=== PATIENT | female | born 1985 | race Caucasian/White ===

== ENCOUNTER 2016-09-17 09:26 | Inpatient (IN) | payer BC ==
[~2016-09-17] VITALS: Ht 167.6 cm; Wt 121.1 kg
[~2016-09-17 09:26] MED LIST: PRENCAP6 PO
--- NOTE | 2016-11-21 15:01 | MH ---
cc: [facility] DATE OF ADMISSION: 11/24/2016 HISTORY OF PRESENT ILLNESS: The patient is a 30-year-old female 4, para 3 estimated date of confinement is December 05, 2016. She was scheduled for an elective repeat section with tubal ligation for November 28. She presented with elevated blood pressures 140s/80s, trace proteinuria, mild edema, a 4-pound weight gain within the week. She was seen at labor and delivery on 11/20/2016 and discharged on bed rest. She returned today for evaluation. The patient's nonstress tests were reactive. She had no symptoms related to headache, blurred vision, nausea, vomiting or uterine contractions, vaginal bleeding. The baby is grossly active. The patient also has history of gestational diabetes that is diet-controlled. Sugars were normal. Recent ultrasound revealed a slight increase in amniotic fluid volume with an CESIA of 23. After reviewing the patient's findings, blood pressure normalized to 130/80. Decision was to proceed with moving her section sooner. The patient is stable clinically. ALLERGIES: THE PATIENT IS ALLERGIC TO: 1. CECLOR. 2. ROCEPHIN. 3. PENICILLIN. 4. AMOXICILLIN. 5. VALIUM. MEDICATIONS: The patient does not take any current medications except vitamins. PAST SURGICAL HISTORY: Her past surgical history includes: 1. section x3. 2. Cholecystectomy in the past. PAST MEDICAL HISTORY: She denies any systemic or chronic disease states aside from and gestational diabetes. FAMILY HISTORY: Noncontributory. SOCIAL HISTORY: She does not smoke, drink alcohol or use illicit substances. She is . PHYSICAL EXAMINATION: GENERAL: Patient is a well-appearing well-nourished female in no distress. VITAL SIGNS: Stable. Blood pressures 140/82 to 130/80. She is afebrile. heart tones are normal in the 140s. nonstress test is reactive. HEAD, EYES, EARS, NOSE, THROAT: The patient's HEENT shows no adenopathy or thyromegaly. Eyegrounds were normal. LUNGS: Lungs were clear in all [place]. CARDIAC: Cardiac is regular rate and rhythm. ABDOMEN: Abdomen is gravid, full-term uterus measuring 40 weeks. EXTREMITIES: Symmetrical full range of motion. She has 1+ edema. There is no hyperreflexia. NEUROLOGIC: Her neurologic exam is grossly intact and nonfocal. ASSESSMENT: The patient is at 38 weeks and 1 day and will be scheduled for elective repeat section on Thursday due to concerns for -induced hypertension and gestational thrombocytopenia. Her platelet count was 122. The patient's group B strep status is negative. She is also consented for tubal ligation. MD LORENA Dangelo/RIK /12:28 PM /2:44 PM
[2016-11-24] VITALS (18 sets, daily range): BP systolic 115–149; BP diastolic 59–91; PULSE 76–99; RESP 16–19; TEMP 97.8–98.4; O2SAT 96–98
[2016-11-24] MEDS ORDERED: CITRIC ACID-SODIUM CITRATE LIQ 30 ML UDC PO SCH (06:00)
[2016-11-24] MEDS ORDERED: LACTATED RINGER'S 1000 ML IV ONE (06:00)
[2016-11-24 06:24] LABS: AUTOMATED NEUTROPHIL # 6.7 TH/MM3 (1.8-7.7); BASOPHIL % 0.3 % (0.0-2.0); EOSINOPHIL # 0.1 TH/MM3 (0-0.4); EOSINOPHIL % 0.7 % (0.0-4.0); HEMATOCRIT 35.7 % (35.0-46.0); HEMO FLAGS DIFF FINAL; LYMPH % 25.1 % (9.0-44.0); LYMPHOCYTE # 2.6 TH/MM3 (1.0-4.8); MEAN CELL VOLUME 79.2 FL (80.0-100.0); MEAN CORPUSCULAR HEMOGLOBIN 26.3 PG (27.0-34.0); MEAN CORPUSCULAR HGB CONC 33.2 % (32.0-36.0); MONO % 9.6 % (0.0-8.0); NEUT % 64.3 % (16.0-70.0); PLATELET COUNT 121 TH/MM3 (150-450); RED BLOOD COUNT 4.51 MIL/MM3 (4.00-5.30); RED CELL DISTRIBUTION WIDTH 15.1 % (11.6-17.2); WHITE BLOOD COUNT 10.3 TH/MM3 (4.0-11.0)
[2016-11-24 06:31] LABS: BACTERIA, URINE MOD /hpf; BLOOD, URINE NEG (NEG); CALCIUM OXALATE CRYSTALS,URINE MANY /hpf; COMMENT (UR) CULTURE INDICATED; CULTURE IF INDICATED CULTURE INDICATED; GLUCOSE,URINE NEG (NEG); KETONE, URINE NEG (NEG); MUCUS URINE FEW /lpf (OCC); NITRITE,URINE NEG (NEG); SQUAMOUS EPITHELIAL CELL URINE 88 /hpf (0-5); TRANSITIONAL EPI CELLS, URINE <1 /hpf; URINE COLOR YELLOW (YELLW/STRAW)
[2016-11-24] MEDS ORDERED: OXYTOCIN 30 UNITS-500ML PREMIX 500 ML IV ONE (07:30)
[2016-11-24] MEDS: LACTATED RINGER'S 1000 ML IV SCH (07:30)
[2016-11-24] MEDS ORDERED: SIMETHICONE 80 MG CHEWABLE TAB PO PRN (07:30)
[2016-11-24] MEDS ORDERED: SODIUM CHLORIDE 0.9% FLUSH 10 ML FLUSH IV FLUSH PRN (07:30)
[2016-11-24] MEDS ORDERED: oxyCODONE/ACETAMINOPHEN 5 MG/325 MG TAB PO PRN ×2 (07:30)
[2016-11-24] MEDS ORDERED: KETOROLAC TROMETHAMINE 60 MG/2 ML (IM) VIAL IM PRN (07:30)
[2016-11-24] MEDS ORDERED: CLINDAMYCIN INJ 900 MG in SODIUM CHLORIDE 0.9% INJ 100 ML IV SCH (07:30)
[2016-11-24] MEDS ORDERED: ACETAMINOPHEN 325 MG TAB PO PRN (07:30)
[2016-11-24] MEDS ORDERED: OXYTOCIN 10 UNIT/ML AMP ONE (07:41)
[2016-11-24] MEDS ORDERED: ONDANSETRON HCL 4 MG/2 ML VIAL ONE ×2 (08:49→09:32)
[2016-11-24] MEDS ORDERED: MORPHINE SULFATE PF 5 MG/10 ML VIAL ONE (08:49)
--- NOTE | 2016-11-24 08:49 | PD.OB.DELI ---
Procedure Note Section Procedure Performed by Trey Barcenas Procedure: Repeat Low Transverse Sec Indication for delivery: Desired elective repeat Informed consent obtained: For anesthesia, For procedure Confirmed correct: Patient, Procedure, Site, Time-out taken Anesthesia: Spinal Medication prior to procedure: As documented in eMAR Monitoring during procedure: Blood pressure monitoring, compliance monitor, doppler, Pulse oximetry Urinary catheter: Inserted using sterile technique, To dependent drainage Sterile preparation: Duraprep Position: Supine with wedge to right side, Supine with safety belt applied Operative Features Skin Incision: Pfannenstiel Uterine Incision: Low transverse w/knife / scissors Membranes Ruptured: Artificially Presentation: Occiput anterior Delivery of : Uneventful Infant: Male One Minute : 9 Five Minute : 9 Weight: 10# 4oz Status of infant: Viable Placenta delivered: Intact Medications: Antibiotics, Oxytocin Estimated blood loss: 650 Procedure tolerated: Well Maternal Condition: Stable Condition: Stable Trey Barcenas MD Nov 24, 2016 08:49
[2016-11-24] MEDS ORDERED: CLINDAMYCIN INJ 600 MG in SODIUM CHLORIDE 0.9% INJ 100 ML IV SCH (09:00)
[2016-11-24] MEDS: SODIUM CHLORIDE 0.9% FLUSH 10 ML FLUSH IV FLUSH SCH (09:00)
[2016-11-24] MEDS ORDERED: *Lactated Ringer's INJ 1,000 ML IV ONE (09:12)
[2016-11-24] MEDS: ONDANSETRON HCL 4 MG/2 ML VIAL IV PUSH PRN ×2 (09:34→13:58)
[2016-11-24] MEDS ORDERED: OXYTOCIN 30 UNITS-500ML PREMIX 500 ML ONE (09:36)
[2016-11-24] MEDS ORDERED: EPIDURAL-DIPHENHYDRAMINE HCL 50 MG/ML VIAL IV PUSH PRN (11:15)
[2016-11-24] MEDS ORDERED: EPIDURAL-NALOXONE HCL 0.4 MG/ML AMP IV PRN (11:15)
[2016-11-24] MEDS ORDERED: EPIDURAL-DIPHENHYDRAMINE HCL 50 MG CAP PO PRN (11:15)
[2016-11-24] MEDS ORDERED: EPIDURAL-NO SYSTEMIC NARCOTICS PRN (11:15)
[2016-11-24] MEDS ORDERED: EPIDURAL-DO NOT ADMINISTER ANTICOAGULANTS PRN (11:15)
[2016-11-24] MEDS ORDERED: LACTATED RINGER'S 1000 ML INJ 1,000 ML IV SCH (12:30)
[2016-11-24] MEDS: CLINDAMYCIN INJ 600 MG in SODIUM CHLORIDE 0.9% INJ 100 ML IV SCH ×2 (14:48→21:28)
[2016-11-24] MEDS ORDERED: OXYTOCIN 30 UNITS-500ML PREMIX 500 ML IV PRN (17:30)
[2016-11-24] MEDS: DOCUSATE SODIUM 50 MG/SENNA 8.6 MG TAB PO PRN (22:14)
[2016-11-24] MEDS: IBUPROFEN 600 MG TAB PO PRN (22:14)
[2016-11-25] VITALS: BP 131/69; PULSE 99; RESP 20
--- NOTE | 2016-11-25 12:37 | HHI.OB ---
Subjective Post Operative Day: 1 Remarks Doing well has nayeli BP very good infant in NICU for TTN Objective Vitals/I&O Vital Signs Date Time Temp Pulse Resp B/P Pulse Ox O2 Delivery O2 Flow Rate FiO2 11/25/16 00:00 99 20 11/25/16 00:00 131/69 11/24/16 19:15 98.4 86 18 146/87 11/24/16 16:00 98.3 92 18 11/24/16 16:00 138/84 Result Diagram: 11/24/16 0609 Objective Remarks GENERAL: Well-nourished, well-developed patient. CARDIOVASCULAR: Regular rate and rhythm without murmurs, gallops, or rubs. RESPIRATORY: Breath sounds equal bilaterally. No accessory muscle use. ABDOMEN/GI: Abdomen soft, non-tender, bowel sounds present. Incision: Clean, dry and intact.nayeli Fundus: Firm, non-tender at umbilicus. GENITOURINARY: Light to moderate bleeding. EXTREMITIES: No cyanosis or edema, non-tender, without signs of DVT. Medications and IVs Current Medications Medications (Trade) Dose Ordered Sig/Froy Route Start Time Stop Time Status Last Admin (Lr 1000 ml Inj) 1,000 ml @ 150 mls/hr Q6H40M IV 11/24/16 06:00 11/24/16 07:30 (NS Flush) 2 ml BID IV FLUSH 11/24/16 09:00 (NS Flush) 2 ml UNSCH PRN IV FLUSH 11/24/16 07:30 11/24/16 21:29 (Mylicon Chew) 80 mg QID PRN PO 11/24/16 07:30 (Tylenol) 650 mg Q6H PRN PO 11/24/16 07:30 (Toradol Inj) 30 mg Q6H PRN IM 11/24/16 07:30 12/01/16 07:29 (Percocet 5-325 Mg) 1 tab Q4H PRN PO 11/24/16 07:30 (Percocet 5-325 Mg) 2 tab Q4H PRN PO 11/24/16 07:30 (Brook-Colace) 2 tab Q12H PRN PO 11/24/16 07:30 11/24/16 22:14 (M-M-R Ii Inj) 0.5 ml ONCE ONCE SQ 11/25/16 16:00 11/25/16 16:01 (Boostrix Inj) 0.5 ml ONCE ONCE IM 11/25/16 16:00 11/25/16 16:01 (Zofran Inj) 4 mg Q6H PRN IV PUSH 11/24/16 07:30 11/24/16 13:58 (Motrin) 600 mg Q6H PRN PO 11/24/16 22:00 11/24/16 22:14 Assessment/Plan Assessment and Plan doing well and normotensive anticipate POD 3 discharge with . Albertina Bishop MD Nov 25, 2016 12:37
[2016-11-25 13:31] LABS: AUTOMATED NEUTROPHIL # 8.7 TH/MM3 (1.8-7.7); BASOPHIL % 0.2 % (0.0-2.0); EOSINOPHIL # 0.1 TH/MM3 (0-0.4); EOSINOPHIL % 0.9 % (0.0-4.0); HEMATOCRIT 33.2 % (35.0-46.0); HEMO FLAGS DIFF FINAL; LYMPH % 11.5 % (9.0-44.0); LYMPHOCYTE # 1.3 TH/MM3 (1.0-4.8); MEAN CELL VOLUME 78.9 FL (80.0-100.0); MEAN CORPUSCULAR HEMOGLOBIN 26.4 PG (27.0-34.0); MEAN CORPUSCULAR HGB CONC 33.4 % (32.0-36.0); MONO % 8.6 % (0.0-8.0); NEUT % 78.8 % (16.0-70.0); PLATELET COUNT 127 TH/MM3 (150-450); RED BLOOD COUNT 4.21 MIL/MM3 (4.00-5.30)
[2016-11-25] MEDS: IBUPROFEN 600 MG TAB PO PRN (14:27)
[2016-11-25] MEDS: DOCUSATE SODIUM 50 MG/SENNA 8.6 MG TAB PO PRN (14:27)
[2016-11-25] MEDS ORDERED: DIPHTH/TETANUS/ACEL PERTUSSIS (BOOSTER) 0.5 ML VIAL/PFS IM ONE (16:00)
[2016-11-25] MEDS ORDERED: MEASLES, MUMPS, RUBELLA VACCINE 0.5 ML VIAL SQ ONE (16:00)
--- NOTE | 2016-11-25 17:38 | MP ---
cc: JAS DELEON M.D. DATE OF SURGERY: 11/24/2016 PREOPERATIVE DIAGNOSIS: Term anterior , previous section x2 for elective repeat section and tubal ligation. PROCEDURE Repeat low transverse section delivery of viable male infant, bilateral tubal ligation using modified Isi technique. ANESTHESIA Spinal ESTIMATED BLOOD LOSS 650 CC DRAINS: Zavaleta gravity OPERATIVE FINDINGS Male was delivered, left occiput transverse, baby weighed 10 pounds 4 ounces. 's were 9 at one minute, 9 at five minutes. INDICATIONS FOR PROCEDURE Patient with two previous sections for elective repeat at term and sterilization procedure. Consent was signed. The patient received clindamycin 90 mg IV prophylactically due to penicillin allergy. DESCRIPTION OF PROCEDURE The patient was taken up room in stable condition underwent spinal anesthetic with excellent result. She was prepped and draped and the Zavaleta catheter was inserted by sterile technique placed a dependent drainage sequential were placed on lower extremities for deep venous thrombosis prophylaxis. Time-out was conducted and agreed by all present in the room after the patient was assessed and excellent pain management was noted. The procedure initiated after she was prepped and draped. A Pfannenstiel incision previously was used #10 blade was used to make the incision through the skin down through the subcutaneous layer encountering significant scar due to previous surgeries the scar was excised sharply and allowing dissection of the rectus fascia away from the muscle. \ This allowed identification of the midline rectus and the incision was made vertically to gain entry to the peritoneum which was opened sharply. The incision was extended by sharp dissection the uterus was examined lower uterine segment was clear of any complication or scar. A transverse incision was made lower uterine segment, pushing the peritoneum away and allowing transverse incision into the uterine cavity clear fluid was noted. The incision was extended bluntly. The vertex was delivered without complication. The was delivered in total with good tone and cry. Baby urinated well on the operative field. Cord was doubly clamped and cut and the was taken isolette by the nursery staff present. Cord samples obtained for typing. The umbilical cord intact with placenta membranes was then removed through the uterine incision intact in sterile technique and the placenta was then sent for donation. The uterus was examined exteriorized. It was closed with a double layer first was a running locking suture followed by a second imbricating suture. All of 0 Monocryl. Fallopian tubes were identified, mesentery was identified, transilluminated and the tube was elevated with [place] the mesentery was opened with the Bovie and then a 2-0 plain sutures placed proximally and distally on each fallopian tube tying the tubes securely and then excising each fallopian tube sharply with scissors. The fallopian tubes were labeled appropriately right and left no active bleeding or hematoma was noted from either right or left fallopian tube remnant. The uterus was then returned to its normal anatomic position. The pelvis all free blood clot was removed. Full count was made and correct. Peritoneum was then closed with running suture two Monocryl. The muscle was reapproximated with interrupted suture of 2 Monocryl and the fascia was closed with 0 Vicryl in a simple running fashion with good result. Subcutaneous layer was irrigated. A small bleeders cauterized, dry subcutaneous space was reapproximated with a running suture of 2-0 Monocryl and nayeli used close the skin. Dressing was applied. The final count was correct. The patient was stable. Infant was doing well in the regular nursery. MD LORENA Dangelo/milton /9:36 AM /5:24 PM
[2016-11-25 19:33] VITALS: BP 111/71; PULSE 97; RESP 16; TEMP 98.2; O2SAT 98
[2016-11-25] MEDS: SODIUM CHLORIDE 0.9% FLUSH 10 ML FLUSH IV FLUSH SCH (21:00)
[2016-11-26 07:20] VITALS: BP 128/80; PULSE 100; RESP 18; TEMP 98.6
[2016-11-26] MEDS: LACTATED RINGER'S 1000 ML IV SCH ×2 (07:53→14:14)
[2016-11-26] MEDS: SODIUM CHLORIDE 0.9% FLUSH 10 ML FLUSH IV FLUSH SCH (07:53)
[2016-11-26] MEDS: IBUPROFEN 600 MG TAB PO PRN ×2 (08:16→15:26)
--- NOTE | 2016-11-26 08:35 | HHI.OB ---
Subjective Post Operative Day: 2 Remarks doing well, repeat c/s for discharge tomorrow Objective Vitals/I&O Vital Signs Date Time Temp Pulse Resp B/P Pulse Ox O2 Delivery O2 Flow Rate FiO2 11/26/16 07:20 98.6 100 18 128/80 11/25/16 19:33 97 111/71 11/25/16 19:33 16 98 11/25/16 19:33 98.2 11/25/16 16:05 18 Result Diagram: 11/25/16 1250 Objective Remarks GENERAL: Well-nourished, well-developed patient. CARDIOVASCULAR: Regular rate and rhythm without murmurs, gallops, or rubs. RESPIRATORY: Breath sounds equal bilaterally. No accessory muscle use. ABDOMEN/GI: Abdomen soft, non-tender, bowel sounds present. Incision: Clean, dry and intact.nayeli Fundus: Firm, non-tender at umbilicus. GENITOURINARY: Light to moderate bleeding. EXTREMITIES: No cyanosis or edema, non-tender, without signs of DVT. Medications and IVs Current Medications Medications (Trade) Dose Ordered Sig/Froy Route Start Time Stop Time Status Last Admin (Lr 1000 ml Inj) 1,000 ml @ 150 mls/hr Q6H40M IV 11/24/16 06:00 11/24/16 07:30 (NS Flush) 2 ml BID IV FLUSH 11/24/16 09:00 (NS Flush) 2 ml UNSCH PRN IV FLUSH 11/24/16 07:30 11/24/16 21:29 (Mylicon Chew) 80 mg QID PRN PO 11/24/16 07:30 (Tylenol) 650 mg Q6H PRN PO 11/24/16 07:30 (Toradol Inj) 30 mg Q6H PRN IM 11/24/16 07:30 12/01/16 07:29 (Percocet 5-325 Mg) 1 tab Q4H PRN PO 11/24/16 07:30 (Percocet 5-325 Mg) 2 tab Q4H PRN PO 11/24/16 07:30 (Brook-Colace) 2 tab Q12H PRN PO 11/24/16 07:30 11/25/16 14:27 (Zofran Inj) 4 mg Q6H PRN IV PUSH 11/24/16 07:30 11/24/16 13:58 (Motrin) 600 mg Q6H PRN PO 11/24/16 22:00 11/26/16 08:16 Assessment/Plan Assessment and Plan doing well and normotensive anticipate POD 3 discharge with infant. Discharge Planning routine Attending Attestation pt seen by me, remove nayeli tomorrow Mame Olivera MD Nov 26, 2016 08:34
--- NOTE | 2016-11-26 13:12 | PD.CIRC ---
Circumcision Procedure Note Procedure: Circumcision Pre-procedure diagnosis: circumcision Post-procedure diagnosis: circumcision Informed Consent: The risks, benefits, indications, potential complications, and alternatives were explained to the patient/family and informed consent obtained. The baby was brought to the procedure room where a time-out was done to ID the patient and the procedure. Performing Physician: Trey Barcenas Anesthesia used: 1% lidocaine injected Type of block: dorsal penile block Device used: Mogen Description: The baby was prepped and draped in a sterile fashion. The procedure followed standard technique. The baby tolerated the procedure well without complication. Findings: Normal male genitalia Estimated blood loss: n/a Specimen: Trey Lopez MD Nov 26, 2016 13:12
[2016-11-26] MEDS ORDERED: IBUP-232 PO (13:14)
[2016-11-26] MEDS ORDERED: OXYC1TAB63 PO (13:14)
--- NOTE | 2016-11-26 13:14 | HHI.DCPOC ---
Discharge Care Plan Your Health Problems Are: Abdominal pain Fever, temperature>100.4 delivery Report Symptoms to Your Doctor -Temperate above 100.5 degrees -Redness, of incision or excessive or foul smelling drainage -Unusual pain or calf pain -Increased vaginal bleeding -Painful or difficulty urinating -Feelings of extreme sadness or anxiety after 2 weeks Goals to Promote Your Health * To prevent worsening of your condition and complications * To maintain your health at the optimal level Directions to Meet Your Goals Take your medications as prescribed Follow your dietary instruction Follow activity as directed Ensure plenty of rest for recovery Drink fluids for hydration Keep your appointments as scheduled Take your immunizations and boosters as scheduled If your symptoms worsen call your PCP, if no PCP go to Urgent Care Center or Emergency Room Smoking is Dangerous to Your Health. Avoid second hand smoke Call the 24-hour crisis hotline for domestic abuse at Trey Barcenas MD Nov 26, 2016 13:14
[2016-11-26] MEDS: DOCUSATE SODIUM 50 MG/SENNA 8.6 MG TAB PO PRN (15:23)
[2016-11-26 18:47] VITALS: BP 115/69; PULSE 87; RESP 17; TEMP 97.5
[2016-11-26 19:05] VITALS: BP 148/81; PULSE 91; RESP 18; TEMP 97.8
[2016-11-27] MEDS: IBUPROFEN 600 MG TAB PO PRN ×2 (01:07→10:25)
[2016-11-27] MEDS: LACTATED RINGER'S 1000 ML IV SCH (07:08)
[2016-11-27] MEDS: SODIUM CHLORIDE 0.9% FLUSH 10 ML FLUSH IV FLUSH SCH (07:09)
[2016-11-27 08:00] VITALS: BP 124/67; PULSE 86; RESP 16; TEMP 98.6
--- NOTE | 2016-11-27 09:48 | HHI.OB ---
Subjective Post Operative Day: 3 Remarks PT doing well, ambulating, bmx 2, voiding w/o difficulty, min bleeding Objective Vitals/I&O Vital Signs Date Time Temp Pulse Resp B/P Pulse Ox O2 Delivery O2 Flow Rate FiO2 11/27/16 08:00 98.6 86 16 124/67 11/26/16 19:05 91 18 148/81 11/26/16 19:05 97.8 11/26/16 18:47 97.5 87 17 115/69 Result Diagram: 11/25/16 1250 Objective Remarks GENERAL: Well-nourished, well-developed patient. CARDIOVASCULAR: Regular rate and rhythm without murmurs, gallops, or rubs. RESPIRATORY: Breath sounds equal bilaterally. No accessory muscle use. ABDOMEN/GI: Abdomen soft, non-tender, bowel sounds present. Incision: Clean, dry and intact.nayeli to be removed today Fundus: Firm, non-tender at umbilicus. GENITOURINARY: Light to moderate bleeding. EXTREMITIES: No cyanosis or edema, non-tender, without signs of DVT. Medications and IVs Current Medications Medications (Trade) Dose Ordered Sig/Froy Route Start Time Stop Time Status Last Admin (Lr 1000 ml Inj) 1,000 ml @ 150 mls/hr Q6H40M IV 11/24/16 06:00 11/24/16 07:30 (NS Flush) 2 ml BID IV FLUSH 11/24/16 09:00 (NS Flush) 2 ml UNSCH PRN IV FLUSH 11/24/16 07:30 11/24/16 21:29 (Mylicon Chew) 80 mg QID PRN PO 11/24/16 07:30 (Tylenol) 650 mg Q6H PRN PO 11/24/16 07:30 (Toradol Inj) 30 mg Q6H PRN IM 11/24/16 07:30 12/01/16 07:29 (Percocet 5-325 Mg) 1 tab Q4H PRN PO 11/24/16 07:30 (Percocet 5-325 Mg) 2 tab Q4H PRN PO 11/24/16 07:30 (Brook-Colace) 2 tab Q12H PRN PO 11/24/16 07:30 11/26/16 15:23 (Zofran Inj) 4 mg Q6H PRN IV PUSH 4/10/17 07:30 11/24/16 13:58 (Motrin) 600 mg Q6H PRN PO 11/24/16 22:00 11/27/16 01:07 Assessment/Plan Assessment and Plan doing well and normotensive anticipate POD 3 discharge with infant. Discharge Planning routine Shaye Harp MD Nov 27, 2016 09:48
== END 2016-11-27 10:44 | disposition home or self-care (01) | DRG 765 ==
LOC: H2EB 11-24 05:34 → H1EA 11-24 09:38
PROVIDERS: ADMIT Obstetrics & Gynecology; ATTEND Obstetrics & Gynecology
PROC: 10D00Z1 Extraction of Products of Conception, Low, Open Approach (ICD-10-PCS; principal; 2016-11-24)
PROC: 0UB70ZZ Excision of Bilateral Fallopian Tubes, Open Approach (ICD-10-PCS; 2016-11-24)
DX: O34.219 Maternal care for unspecified type scar from previous cesarean delivery (principal); O99.113 Other diseases of the blood and blood-forming organs and certain disorders involving the immune mechanism complicating pregnancy, third trimester; O13.3 Gestational [pregnancy-induced] hypertension without significant proteinuria, third trimester; O24.420 Gestational diabetes mellitus in childbirth, diet controlled; Z30.2 Encounter for sterilization; Z37.0 Single live birth; Z3A.38 38 weeks gestation of pregnancy
CPT/HCPCS: 59025; 81001; 82948; 85025; 86850; 86900; 86901; 87086; 88302; J2274; J2405; J2590; J7120

== ENCOUNTER 2016-10-26 20:34 | Observation (INO) | payer BC ==
[~2016-10-26 20:34] MED LIST changes: +IBUP600 PO; +OXYC1SOL5 PO; +PERI8.6T PO
--- NOTE | 2016-10-26 21:08 | PD ---
HPI Chief Complaint Contractions Travel History International Travel<30 Days: No Contact w/Intl Traveler<30Days: No Known Affected Area: No History of Present Illness HPI at 34w 2d with history of previous C/S x 3. Presents with c/o irregular contractions. Reports history of GDM- diet controlled. Denies other problems this . Denies DSOUZA/visual changes/RUQ pain. Para: 3 : 4 History Past Medical History Medical History: Denies Significant Hx Past Surgical History Narrative Surgical Previous C/S x 3 Family History Family History: Negative Social History Alcohol Use: No Tobacco Use: No Substance Abuse: No Allergies-Medications (Allergen,Severity, Reaction): Coded Allergies: Ceclor (Verified Allergy, Severe, Anaphylaxis, 03/01/15) Demerol (Verified Allergy, Severe, HIVES, 03/26/15) Rocephin (Verified Allergy, Severe, Anaphylaxis, 03/01/15) Valium (Verified Allergy, Mild, hives, 03/01/15) Amoxicillin (Verified Allergy, Unknown, 03/26/15) Penicillin (Verified Allergy, Unknown, 03/26/15) Uncoded Allergies: anesthesia (Allergy, Mild, hives, 03/01/15) Home Meds Active Scripts Sennosides-Docusate Sodium (Brook-Colace 8.6-50 mg)1 Tab Tab2 Tab PO Q12H #30 TAB Ref 1 Prov:Jie Solitario MD 03/27/15 Oxycodone W/ Acetaminophen (Oxycodone/Acetaminophen 5-325 mg/5Ml)1 Tab Tab1 Tab PO Q4H PRN (PAIN SCALE 3 TO 5) #30 TAB Prov:Jie Solitario MD 03/27/15 Ibuprofen (Motrin 600 Mg Tab)600 Mg Fol807 Mg PO Q6H #30 TAB Ref 1 Prov:Jie Solitario MD 03/27/15 Reported Medications Mv & Min W/Fe Fumarat ( 1) Cap1 Cap PO 03/26/15 Physical Exam AFVSS 151/93, 147/83, 142/86, 138/72 Narrative GENERAL: Well-nourished, well-developed patient. SKIN: Warm and dry. HEAD: Normocephalic and atraumatic. EYES: No scleral icterus. No injection or drainage. ENT: No nasal drainage noted. Mucous membranes pink. Airway patent. NECK: Supple, trachea midline. No JVD. CARDIOVASCULAR: Regular rate and rhythm without murmurs, gallops, or rubs. RESPIRATORY: Breath sounds equal bilaterally. No accessory muscle use. BREASTS: Bilateral exam showed no masses , no retractions, no nipple discharge. ABDOMEN/GI: Abdomen soft, non-tender, bowel sounds present, no rebound, no guarding Gravid to [-] weeks size Fundal Height: [-] GENITOURINARY: External Genitalia: intact and normal in appearance BUS glands: [-] Cervix: [-] Dilatation: [FT] Effacement: [50] Station: [3] Presentation: [-] Membranes: [intact or ruptured] Uterine Contractions: [irregular contractions] FHT's: Category: [1] Baseline: [120s] Reactive: [reactive] Variability: [moderate] Decels: [none] EXTREMITIES: No cyanosis or edema. 2+ DTR bilaterally. BACK: Nontender without obvious deformity. No CVA tenderness. NEUROLOGICAL: Awake and alert. Motor and sensory grossly within normal limits. Five out of 5 muscle strength in all muscle groups. Normal speech. MDM Interpretation(s) at 34w 2d, previous C/S x 3, with elevated BP. Plan Will obtain Pre Eclampsia labs and serial BPs. Will administer IVF. Continue to monitor. Will admit for observation and begin 24 hour urine. All questions answered. Dr. Turcios notified. Diagnosis Diagnosis: Primary Impression: 34 weeks gestation of Additional Impressions: Hypertension affecting in third trimester Previous section Carrie Jimenez MD Oct 26, 2016 21:08
[2016-10-26] MEDS ORDERED: SODIUM CHLORIDE 0.9% FLUSH 5 ML FLUSH IV PRN (22:15)
[2016-10-26 22:16] LABS: HEMATOCRIT 34.3 % (35.0-46.0); MEAN CELL VOLUME 82.4 FL (80.0-100.0); MEAN CORPUSCULAR HEMOGLOBIN 27.7 PG (27.0-34.0); MEAN CORPUSCULAR HGB CONC 33.6 % (32.0-36.0); PLATELET COUNT 139 TH/MM3 (150-450); RED BLOOD COUNT 4.16 MIL/MM3 (4.00-5.30); RED CELL DISTRIBUTION WIDTH 14.4 % (11.6-17.2); REVIEW FLAG FINAL; WHITE BLOOD COUNT 10.7 TH/MM3 (4.0-11.0)
[2016-10-26 22:18] LABS: BACTERIA, URINE RARE /hpf; BLOOD, URINE NEG (NEG); CALCIUM OXALATE CRYSTALS,URINE FEW /hpf; COMMENT (UR) CULT NOT INDICATED; CULTURE IF INDICATED CULT NOT INDICATED; GLUCOSE,URINE TRACE mg/dL (NEG); KETONE, URINE NEG (NEG); MUCUS URINE FEW /lpf (OCC); NITRITE,URINE NEG (NEG); PH, URINE 6.5 (5.0-8.5); SQUAMOUS EPITHELIAL CELL URINE 5 /hpf (0-5); URINE COLOR YELLOW (YELLW/STRAW)
[2016-10-26 22:30] VITALS: BP 131/77; PULSE 88
[2016-10-26 22:34] VITALS: RESP 18
[2016-10-26 22:53] LABS: ANION GAP 11 MEQ/L (5-15); AST (GOT) 9 U/L (15-37); BICARBONATE 21.1 MEQ/L (21.0-32.0); BLOOD UREA NITROGEN 7 MG/DL (7-18); CHLORIDE 109 MEQ/L (98-107); GLOMERULAR FILTRATION RATE 121 ML/MIN (>89); POTASSIUM 3.3 MEQ/L (3.5-5.1); SODIUM (NA) 141 MEQ/L (136-145); URIC ACID 4.6 MG/DL (2.6-6.0)
[2016-10-26 23:00] VITALS: RESP 18; TEMP 98.1
[2016-10-26 23:01] VITALS: BP 136/73; PULSE 81
[2016-10-26 23:01] LABS: ALKALINE PHOSPHATASE 93 U/L (45-117); ALT (GPT) 14 U/L (10-53); LDH SERUM 162 U/L (84-246); TOTAL BILIRUBIN ADULT 0.3 MG/DL (0.2-1.0)
[2016-10-27] VITALS (18 sets, daily range): BP systolic 120–152; BP diastolic 59–86; PULSE 83–98; RESP 16–18; TEMP 98–98.1
[2016-10-27] MEDS: LACTATED RINGER'S 1000 ML INJ 1,000 ML IV SCH ×5 (06:00→18:08)
[2016-10-27] MEDS: SODIUM CHLORIDE 0.9% FLUSH 5 ML FLUSH IV SCH ×2 (07:43→21:00)
[2016-10-27] MEDS ORDERED: POTASSIUM CHLORIDE 25 MEQ EFFERVESCENT TAB PO ONE (08:15)
--- NOTE | 2016-10-27 08:43 | PD.OB.ANTE ---
Subjective Interval History no more contractions; feeling better; Denies H/A, BV, N/V Objective Vital Signs Vital Signs Date Time Temp Pulse Resp B/P Pulse Ox O2 Delivery O2 Flow Rate FiO2 10/27/16 08:00 93 136/77 10/27/16 07:58 93 129/79 10/27/16 07:30 98.0 10/27/16 07:29 16 10/27/16 07:29 90 152/85 10/27/16 03:13 90 121/59 10/27/16 03:00 98.1 18 10/26/16 23:01 81 136/73 10/26/16 23:00 98.1 18 10/26/16 22:34 18 10/26/16 22:30 88 131/77 Lab & Micro Results Test 10/26/16 10/26/16 21:15 21:30 Urine Color YELLOW Urine Turbidity HAZY Urine pH 6.5 Urine Specific [place] 1.018 Urine Protein TRACE mg/dL Urine Glucose (UA) TRACE mg/dL Urine Ketones NEG mg/dL Urine Occult Blood NEG Urine Nitrite NEG Urine Bilirubin NEG Urine Urobilinogen LESS THAN 2.0 MG/DL Urine Leukocyte Esterase NEG Urine WBC 2 /hpf Urine Squamous Epithelial 5 /hpf Cells Urine Calcium Oxalate Crystals FEW /hpf Urine Bacteria RARE /hpf Urine Mucus FEW /lpf Microscopic Urinalysis Comment CULT NOT INDICATED White Blood Count 10.7 TH/MM3 Red Blood Count 4.16 MIL/MM3 Hemoglobin 11.5 GM/DL Hematocrit 34.3 % Mean Corpuscular Volume 82.4 FL Mean Corpuscular Hemoglobin 27.7 PG Mean Corpuscular Hemoglobin 33.6 % Concent Red Cell Distribution Width 14.4 % Platelet Count 139 TH/MM3 Mean Platelet Volume 9.0 FL Sodium Level 141 MEQ/L Potassium Level 3.3 MEQ/L Chloride Level 109 MEQ/L Carbon Dioxide Level 21.1 MEQ/L Anion Gap 11 MEQ/L Blood Urea Nitrogen 7 MG/DL Creatinine 0.58 MG/DL Estimat Glomerular Filtration 121 ML/MIN Rate Random Glucose 114 MG/DL Uric Acid 4.6 MG/DL Calcium Level 9.0 MG/DL Total Bilirubin 0.3 MG/DL Aspartate Amino Transf 9 U/L (AST/SGOT) Alanine Aminotransferase 14 U/L (ALT/SGPT) Alkaline Phosphatase 93 U/L Lactate Dehydrogenase 162 U/L Total Protein 6.4 GM/DL Albumin 2.7 GM/DL Blood Type A POSITIVE Physical Exam GENERAL: Well-nourished, well-developed patient. CARDIOVASCULAR: Regular rate and rhythm without murmurs, gallops, or rubs. RESPIRATORY: Breath sounds equal bilaterally. No accessory muscle use. ABDOMEN/GI: Abdomen soft, non-tender. Fundus: [-] GENITOURINARY: External Genitalia: intact and normal in appearance Uterine Contractions: none FHT's: Category: 1 Baseline: [-] Reactive: [-] Variability: [-] Decels: [-] EXTREMITIES: No cyanosis or edema, non-tender, without signs of DVT DTR 1+. Assessment and Plan Assessment and Plan 34 5/7 weeks, PIH workup, , feels good, + GFM, 24 hour collection complete at 22:00 Trey Barcenas MD Oct 27, 2016 08:43
[2016-10-27 10:05] LABS: HEMATOCRIT 32.8 % (35.0-46.0); MEAN CELL VOLUME 81.4 FL (80.0-100.0); MEAN CORPUSCULAR HEMOGLOBIN 27.9 PG (27.0-34.0); MEAN CORPUSCULAR HGB CONC 34.3 % (32.0-36.0); PLATELET COUNT 124 TH/MM3 (150-450); RED BLOOD COUNT 4.03 MIL/MM3 (4.00-5.30); RED CELL DISTRIBUTION WIDTH 14.2 % (11.6-17.2); REVIEW FLAG FINAL; WHITE BLOOD COUNT 9.1 TH/MM3 (4.0-11.0)
[2016-10-27 10:35] LABS: ALKALINE PHOSPHATASE 93 U/L (45-117); ALT (GPT) 12 U/L (10-53); ANION GAP 11 MEQ/L (5-15); AST (GOT) 10 U/L (15-37); BICARBONATE 21.3 MEQ/L (21.0-32.0); BLOOD UREA NITROGEN 5 MG/DL (7-18); CHLORIDE 107 MEQ/L (98-107); GLOMERULAR FILTRATION RATE 151 ML/MIN (>89); POTASSIUM 3.5 MEQ/L (3.5-5.1); SODIUM (NA) 139 MEQ/L (136-145); TOTAL BILIRUBIN ADULT 0.4 MG/DL (0.2-1.0)
[2016-10-28] VITALS (9 sets, daily range): BP systolic 129–141; BP diastolic 77–91; PULSE 82–93; RESP 16–20; TEMP 98.4–98.5
[2016-10-28 03:29] LABS: CREAT 24 TIMED 34.5 MG/DL; URINE TOTAL PROTEIN TIMED 5.3 MG/DL
[2016-10-28 06:03] LABS: MEAN CELL VOLUME 82.6 FL (80.0-100.0); MEAN CORPUSCULAR HEMOGLOBIN 28.1 PG (27.0-34.0); PLATELET COUNT 122 TH/MM3 (150-450); RED BLOOD COUNT 3.99 MIL/MM3 (4.00-5.30); RED CELL DISTRIBUTION WIDTH 14.8 % (11.6-17.2); REVIEW FLAG FINAL; WHITE BLOOD COUNT 8.8 TH/MM3 (4.0-11.0)
[2016-10-28] MEDS: SODIUM CHLORIDE 0.9% FLUSH 5 ML FLUSH IV SCH (08:13)
[2016-10-28] MEDS ORDERED: ACETAMINOPHEN 500 MG CPLT PO ONE (09:15)
--- NOTE | 2016-10-28 09:21 | PD.OB.ANTE ---
Subjective Diagnosis: (1) Hypertension affecting in third trimester Diagnosis: Principal (2) contractions Diagnosis: Principal (3) 34 weeks gestation of Diagnosis: Secondary (4) H/O section Diagnosis: Secondary Antepartum ROS: Reports: New complaints (has headache this morning, not severe , just dull at bilateral temples; no vision changes, no RUQ pain, no edema, no N /V), Contractions (mild karla chaudhary type contractions, irregular), Denies: Loss of fluid, Vaginal bleeding, movement normal, Other Objective Vital Signs Vital Signs Date Time Temp Pulse Resp B/P Pulse Ox O2 Delivery O2 Flow Rate FiO2 10/28/16 08:14 90 141/91 10/28/16 08:01 82 129/84 10/28/16 08:00 18 10/28/16 08:00 98.5 10/28/16 06:47 16 10/28/16 04:34 98.4 16 10/28/16 04:32 93 134/77 10/28/16 01:52 16 10/27/16 23:41 18 10/27/16 23:40 92 120/67 10/27/16 19:19 98.0 10/27/16 19:05 98 146/77 10/27/16 19:00 18 10/27/16 15:05 96 146/72 10/27/16 15:00 92 139/77 10/27/16 14:56 92 140/86 10/27/16 14:51 83 140/86 10/27/16 13:55 18 10/27/16 13:55 95 142/76 10/27/16 11:11 96 131/82 10/27/16 11:11 18 10/27/16 11:09 98.1 Lab & Micro Results Test 10/27/16 10/28/16 22:00 04:21 Urine Total Volume 24 Hours 4450 ML Urine Creatinine 24 Hour 1.54 GM/24HR Urine Total Protein 24 Hour 236 MG/24HR White Blood Count 8.8 TH/MM3 Red Blood Count 3.99 MIL/MM3 Hemoglobin 11.2 GM/DL Hematocrit 33.0 % Mean Corpuscular Volume 82.6 FL Mean Corpuscular Hemoglobin 28.1 PG Mean Corpuscular Hemoglobin 34.0 % Concent Red Cell Distribution Width 14.8 % Platelet Count 122 TH/MM3 Mean Platelet Volume 9.2 FL Physical Exam GENERAL: Well-nourished, well-developed patient. Obese. Sitting up in bed, eating. CARDIOVASCULAR: Regular rate and rhythm without murmurs, gallops, or rubs. RESPIRATORY: Breath sounds equal bilaterally. No accessory muscle use. ABDOMEN/GI: Abdomen soft, non-tender. Fundus: pt obese, difficult to measure GENITOURINARY: External Genitalia: deferred FHT's: Category: I Reactive NST early this AM, 120s, +acels, +btbv, no decels EXTREMITIES: No cyanosis or edema, non-tender, without signs of DVT. Assessment and Plan Problem List: (1) Hypertension affecting in third trimester Status: Acute (2) contractions Status: Acute (3) 34 weeks gestation of Status: Acute (4) H/O section Status: Chronic Assessment and Plan 30 yo admit for PIH workup, initially presented for contractions 1) contractions: irregular, no cervical dilation or change, no sign of labor 2) hypertension in , third trimester: no severe range values, 24h urine with <300mg protein and PIH labs basically wnl except plts 122; if pt's DSOUZA 's resolves with tylenol will plan d/c today with bedrest at home & twice/week testing/eval in office; pt has 3 children at home she cares for, will take FMLA to allow her full bedrest 3) h/o CD x 3: for repeat & BTL at time of delivery 4) status: reactive NST today Jie Solitario MD Oct 28, 2016 09:21
--- NOTE | 2016-10-28 13:57 | HHI.DS ---
Discharge Summary Admission Date Oct 26, 2016 at 22:11 Discharge Date: Oct 28, 2016 Admitting Diagnosis contractions S[place] in third trimester Hypertension in third trimester history of x 3 (1) Hypertension affecting in third trimester Diagnosis: Principal (2) 34 weeks gestation of Diagnosis: Secondary (3) H/O section Diagnosis: Secondary Procedures monitoring on labor & delivery, non-stress test daily Brief History 30 yo admitted Thursday evening 10/26/16 initially for contractions , threatened labor, with finding of elevated BPs on admission. Pt's history is significant for h/o x 3 and obesity. CBC/BMP: 10/28/16 0421 10/27/16 0906 Significant Findings Laboratory Tests Test 10/26/16 10/26/16 10/27/16 10/27/16 21:15 21:30 09:06 22:00 Urine Turbidity HAZY (CLEAR) Urine Calcium Oxalate Crystals FEW /hpf (NONE) Urine Bacteria RARE /hpf (NONE) Urine Mucus FEW /lpf (OCC) Hemoglobin 11.5 GM/DL 11.2 GM/DL (11.6-15.3) (11.6-15.3) Hematocrit 34.3 % 32.8 % (35.0-46.0) (35.0-46.0) Platelet Count 139 TH/MM3 124 TH/MM3 (150-450) (150-450) Potassium Level 3.3 MEQ/L (3.5-5.1) Chloride Level 109 MEQ/L (98-107) Random Glucose 114 MG/DL 115 MG/DL (74-106) (74-106) Aspartate Amino Transf 9 U/L (15-37) 10 U/L (15-37) (AST/SGOT) Albumin 2.7 GM/DL 2.6 GM/DL (3.4-5.0) (3.4-5.0) Blood Urea Nitrogen 5 MG/DL (7-18) Creatinine 0.48 MG/DL (0.50-1.00) Total Protein 6.2 GM/DL (6.4-8.2) Urine Total Protein 24 Hour 236 MG/24HR (0-150) Test 10/28/16 04:21 Red Blood Count 3.99 MIL/MM3 (4.00-5.30) Hemoglobin 11.2 GM/DL (11.6-15.3) Hematocrit 33.0 % (35.0-46.0) Platelet Count 122 TH/MM3 (150-450) PE at Discharge NAD A&O x 3 CTA b/l no wheeze RRR no murmur abd obese gravid c/w dates Ext no c/c/e x 4 deferred NST Cat I tracing Hospital Course 30 yo admitted for contractions, threatened labor, with finding of elevated BPs on admission, no severe range. Contractions subsided with IV fluid hydration and no cervical dilation occurred. PIH labs essentially unremarkable except plts 122. 24h urine with protein <300mg and adequate volume. Pt had mild headache relieved with oral Tylenol and by hospital day #2 was meeting d/c criteria. Will continue to follow closely as outpatient with twice/week office evaluation. pt is discharge to home on bedrest. Pt Condition on Discharge: Good Discharge Disposition: Discharge Home Discharge Instructions DIET: Follow Instructions for: Heart Healthy Diet Additional Diet Instructions: low salt, avoid caffeine/soda Activities you can perform: Continue Bedrest Activities to avoid: Lifting/Bending, Weight Bearing, Strenuous Activity, Driving Additional Activity Instructio: pt to be on bedrest while at home, no vigorous or strenuous activity Jie Solitario MD Oct 28, 2016 13:57
== END 2016-10-28 14:40 | disposition home or self-care (01) ==
LOC: HOBED 20:34 → H2EA 22:11
PROVIDERS: ADMIT Obstetrics & Gynecology; ATTEND Obstetrics & Gynecology
DX: O60.03 Preterm labor without delivery, third trimester (principal); Z3A.34 34 weeks gestation of pregnancy; O16.3 Unspecified maternal hypertension, third trimester; E66.9 Obesity, unspecified; R51 Headache
CPT/HCPCS: 80053; 81001; 82570; 82948; 83615; 84157; 84550; 85027; 86592; 86900; 86901; 99285; G0378; J7120

== ENCOUNTER → 2016-11-20 | Emergency (ER) | payer BC ==
[~2016-11-20] MED LIST changes: +IBUP-232 PO; -IBUP600 PO; +LACTATED RINGER'S 1000 ML INJ 1,000 ML IV ONE; -OXYC1SOL5 PO; +OXYC1TAB63 PO; -PERI8.6T PO
--- NOTE | 2016-11-20 21:17 | PD ---
HPI Chief Complaint Contractions since 6 PM Date Seen: Nov 20, 2016 Travel History International Travel<30 Days: No Contact w/Intl Traveler<30Days: No Known Affected Area: No History of Present Illness HPI 30-year-old female at 37 weeks 6 days complains of contractions at 6 PM, mild intermittent and irregular. Patient has been on bedrest due to some mildly elevated blood pressures. This , K by gestational diabetes with good control. Was seen last Thursday and the office and her cervix was closed. Para: 3 : 4 Last Menstrual Period: Nov 20, 2016 History Past Medical History Narrative Medical Lyme disease Gestational diabetes this Obstetric History Obstetric History 3 Gestational diabetes previous and this Past Surgical History Narrative Surgical Cholecystectomy 3 Family History Family History: Negative Social History Alcohol Use: No Tobacco Use: No Substance Abuse: No Allergies-Medications (Allergen,Severity, Reaction): Coded Allergies: Ceclor (Verified Allergy, Severe, Anaphylaxis, 03/01/15) Demerol (Verified Allergy, Severe, HIVES, 03/26/15) Rocephin (Verified Allergy, Severe, Anaphylaxis, 03/01/15) Valium (Verified Allergy, Mild, hives, 03/01/15) Amoxicillin (Verified Allergy, Unknown, 03/26/15) Penicillin (Verified Allergy, Unknown, 03/26/15) Uncoded Allergies: anesthesia (Allergy, Mild, hives, 03/01/15) Home Meds Reported Medications Mv & Min W/Fe Fumarat ( 1) Cap1 Cap PO 03/26/15 Review of Systems Except as stated in HPI: all other systems reviewed are Neg Physical Exam Narrative GENERAL: Well-nourished, well-developed patient. SKIN: Warm and dry. HEAD: Normocephalic and atraumatic. EYES: No scleral icterus. No injection or drainage. ENT: No nasal drainage noted. Mucous membranes pink. Airway patent. NECK: Supple, trachea midline. No JVD. CARDIOVASCULAR: Regular rate and rhythm without murmurs, gallops, or rubs. RESPIRATORY: Breath sounds equal bilaterally. No accessory muscle use. BREASTS: Bilateral exam showed no masses , no retractions, no nipple discharge. ABDOMEN/GI: Abdomen soft, non-tender, bowel sounds present, no rebound, no guarding Gravid to [-40] weeks size Fundal Height: [-] GENITOURINARY: External Genitalia: intact and normal in appearance BUS glands: [-Normal] Cervix: Posterior Dilatation: Closed Effacement: Long Station: High Presentation: Vertex Membranes: Intact Uterine Contractions: Occasional and irregular FHT's: Category: [-1] Baseline: 160 Reactive: Moderate Variability: Moderate Decels: Absent EXTREMITIES: No cyanosis or edema. BACK: Nontender without obvious deformity. No CVA tenderness. NEUROLOGICAL: Awake and alert. Motor and sensory grossly within normal limits. Five out of 5 muscle strength in all muscle groups. Normal speech. Will send [facility] labs, bolus with lactated Ringer's due to mild tachycardia. Data Data Orders Vital Signs (Adult) .ON ADMISSION (11/20/16 21:11) ^ Labor Status (11/20/16 21:11) Urinalysis - C+S If Indicated (11/20/16 21:11) Diet Liquid (11/21/16 Breakfast) Cbc No Diff, Includes Plts (11/20/16 21:11) Comprehensive Metabolic Panel (11/20/16 21:11) Uric Acid (11/20/16 21:11) Lr (Bolus) Inj (11/20/16 21:15) Labs Laboratory Tests Test 11/20/16 21:15 White Blood Count 12.1 TH/MM3 Red Blood Count 4.72 MIL/MM3 Hemoglobin 12.3 GM/DL Hematocrit 37.5 % Mean Corpuscular Volume 79.4 FL Mean Corpuscular Hemoglobin 26.1 PG Mean Corpuscular Hemoglobin 32.9 % Concent Red Cell Distribution Width 15.0 % Platelet Count 122 TH/MM3 Mean Platelet Volume 9.7 FL Urine Color YELLOW Urine Turbidity HAZY Urine pH 6.0 Urine Specific [place] 1.020 Urine Protein TRACE mg/dL Urine Glucose (UA) NEG mg/dL Urine Ketones NEG mg/dL Urine Occult Blood NEG Urine Nitrite NEG Urine Bilirubin NEG Urine Urobilinogen LESS THAN 2.0 MG/DL Urine Leukocyte Esterase NEG Urine RBC 1 /hpf Urine WBC 3 /hpf Urine Squamous Epithelial 23 /hpf Cells Urine Calcium Oxalate Crystals MANY /hpf Urine Bacteria FEW /hpf Urine Mucus FEW /lpf Microscopic Urinalysis Comment CULT NOT INDICATED Sodium Level 138 MEQ/L Potassium Level 4.3 MEQ/L Chloride Level 105 MEQ/L Carbon Dioxide Level 22.0 MEQ/L Anion Gap 11 MEQ/L Blood Urea Nitrogen 11 MG/DL Creatinine 0.62 MG/DL Estimat Glomerular Filtration 112 ML/MIN Rate Random Glucose 134 MG/DL Uric Acid 5.1 MG/DL Calcium Level 9.8 MG/DL Total Bilirubin 0.3 MG/DL Aspartate Amino Transf 15 U/L (AST/SGOT) Alanine Aminotransferase 17 U/L (ALT/SGPT) Alkaline Phosphatase 135 U/L Total Protein 6.8 GM/DL Albumin 2.7 GM/DL MDM Plan 30-year-old female at 38 weeks gestation, cervix is closed. Blood pressure initially slightly elevated, normal PIH labs, blood pressures now normalized Urinalysis shows trace protein Patient has appointment tomorrow morning at her OB office, she was given a 24- hour urine collection for total protein Diagnosis Diagnosis: Primary Impression: 38 weeks gestation of Additional Impressions: False labor False labor after 37 completed weeks of gestation Previous section complicating Previous section complicating , antepartum condition or complication Disposition: 01 DISCHARGE HOME Maranda Khan MD Nov 20, 2016 21:17
[2016-11-20 21:47] VITALS: BP 136/90; PULSE 100
[2016-11-20 22:12] VITALS: BP 141/90; PULSE 95
[2016-11-20 22:16] VITALS: BP 141/93; PULSE 90
[2016-11-20 22:20] LABS: BACTERIA, URINE FEW /hpf; BLOOD, URINE NEG (NEG); CALCIUM OXALATE CRYSTALS,URINE MANY /hpf; COMMENT (UR) CULT NOT INDICATED; CULTURE IF INDICATED CULT NOT INDICATED; GLUCOSE,URINE NEG (NEG); KETONE, URINE NEG (NEG); MUCUS URINE FEW /lpf (OCC); NITRITE,URINE NEG (NEG); SQUAMOUS EPITHELIAL CELL URINE 23 /hpf (0-5); URINE COLOR YELLOW (YELLW/STRAW)
[2016-11-20 22:22] LABS: HEMATOCRIT 37.5 % (35.0-46.0); MEAN CELL VOLUME 79.4 FL (80.0-100.0); MEAN CORPUSCULAR HEMOGLOBIN 26.1 PG (27.0-34.0); MEAN CORPUSCULAR HGB CONC 32.9 % (32.0-36.0); PLATELET COUNT 122 TH/MM3 (150-450); RED BLOOD COUNT 4.72 MIL/MM3 (4.00-5.30); REVIEW FLAG FINAL; WHITE BLOOD COUNT 12.1 TH/MM3 (4.0-11.0)
[2016-11-20 22:32] LABS: ANION GAP 11 MEQ/L (5-15); AST (GOT) 15 U/L (15-37); BLOOD UREA NITROGEN 11 MG/DL (7-18); CHLORIDE 105 MEQ/L (98-107); GLOMERULAR FILTRATION RATE 112 ML/MIN (>89); POTASSIUM 4.3 MEQ/L (3.5-5.1); SODIUM (NA) 138 MEQ/L (136-145); URIC ACID 5.1 MG/DL (2.6-6.0)
[2016-11-20 22:35] LABS: ALKALINE PHOSPHATASE 135 U/L (45-117); ALT (GPT) 17 U/L (10-53); TOTAL BILIRUBIN ADULT 0.3 MG/DL (0.2-1.0)
[2016-11-20 22:46] VITALS: BP 127/68; PULSE 95
[2016-11-20 23:00] VITALS: BP 131/75; PULSE 96
[2016-11-20 23:15] VITALS: RESP 18
== END | disposition home or self-care (01) ==
LOC: HOBED 20:04
DX: O47.1 False labor at or after 37 completed weeks of gestation (principal); O34.219 Maternal care for unspecified type scar from previous cesarean delivery; Z3A.38 38 weeks gestation of pregnancy
CPT/HCPCS: 80053; 81001; 84550; 85027; 99283